=== PATIENT | female | born 2000 | race Two or more races ===

== ENCOUNTER 2022-12-18 13:44 | Outpatient (CLI) | payer OTHER | END 2022-12-18 13:58 | disposition home or self-care (01) | LOC: SONOGRAMA 13:44 | PROVIDERS: ATTEND Obstetrics & Gynecology | DX: N92.1 Excessive and frequent menstruation with irregular cycle (principal) ==

== ENCOUNTER 2023-01-17 07:58 | Outpatient (CLI) | payer OTHER | END 2023-01-17 08:10 | disposition home or self-care (01) | LOC: MRI 07:58 | PROVIDERS: ATTEND Obstetrics & Gynecology | DX: E22.1 Hyperprolactinemia (principal) | CPT/HCPCS: 70553 ==